=== PATIENT | female | born 1985 | race Caucasian/White ===

== ENCOUNTER 2018-02-25 22:51 | Inpatient (IN) | payer OTHER ==
[~2018-02-25] VITALS: Ht 175.3 cm; Wt 94.0 kg
[2018-02-25] MEDS ORDERED: OXYTOCIN 30U/ 0.9% NaCL 500ML 500 ML IV ONE (23:12)
[2018-02-25] MEDS ORDERED: D5%-LACTATED RINGERS 1,000 ML IV SCH (23:12)
[2018-02-25] MEDS ORDERED: OXYTOCIN 30U/ 0.9% NaCL 500ML 500 ML IV PRN (23:12)
[2018-02-25] MEDS ORDERED: LACTATED RINGERS 1,000 ML IV SCH ×2 (23:12→23:31)
[2018-02-25] MEDS ORDERED: MISOPROSTOL 200 MCG TABLET ONE (23:19)
[2018-02-25] MEDS ORDERED: LIDOCAINE 1%, 20ML ONE (23:19)
[2018-02-25] MEDS ORDERED: NEWBORN KIT ONE (23:19)
[2018-02-25] MEDS ORDERED: OXYTOCIN 30U/ 0.9% NaCL 500ML 500 ML ONE (23:19)
[2018-02-25] MEDS ORDERED: FENTANYL PF 100 MCG/2ML IVPush PRN (23:30)
[2018-02-25] MEDS ORDERED: CALCIUM CARBONATE 500 MG TAB.CHEW PO PRN (23:30)
[2018-02-25] MEDS ORDERED: FENTANYL PF 100 MCG/2ML IV PRN (23:30)
[2018-02-25] MEDS ORDERED: TERBUTALINE 1 MG/ML, 1ML IVPush PRN (23:30)
[2018-02-25] MEDS ORDERED: ONDANSETRON 2MG/ML, 2ML IVPush PRN (23:30)
[2018-02-25] MEDS ORDERED: FENTANYL/BUPIV./NS/PF 250 ML EPIDCONT SCH (23:31)
[2018-02-25 23:39] LABS: BASOPHILS # (AUTO) 0.04 x10^3/uL (0-0.1); BASOPHILS % (AUTO) 0 % (0-1); EOSINOPHILS # (AUTO) 0.18 x10^3/uL (0-0.4); EOSINOPHILS % (AUTO) 1 % (1-7); LYMPHOCYTES # (AUTO) 1.84 x10^3/uL (1-3.4); LYMPHOCYTES % (AUTO) 12 % (22-44); MD NO; MEAN CORPUSCULAR HEMOGLOBIN 31.7 pg (27.0-34.8); MEAN CORPUSCULAR HGB CONC 34.4 g/dL (32.4-35.8); MEAN CORPUSCULAR VOLUME 92.2 fL (80-100); MEAN PLATELET VOLUME 9.3 fL (7.4-10.4); MONOCYTES # (AUTO) 0.43 x10^3/uL (0.2-0.8); MONOCYTES % (AUTO) 3 % (2-9); NEUTROPHILS # (AUTO) 13.05 x10^3/uL (1.8-6.8); NEUTROPHILS % (AUTO) 84 % (42-75); PLATELET COUNT 180 x10^3/uL (130-400); RED BLOOD COUNT 4.23 x10^6/uL (3.82-5.3); RED CELL DISTRIBUTION WIDTH 12.8 % (9.6-15.2)
[2018-02-25] MEDS ORDERED: FENTANYL PF 100 MCG/2ML ONE (23:43)
[2018-02-25] MEDS ORDERED: FENTANYL PF 500 MCG, BUPIVACAINE/PF 0.5%, 30ML 62.5 ML in SODIUM CHLORIDE 0.9% 177.5 ML EPIDCONT SCH (23:45)
[2018-02-25 23:49] VITALS: BP 125/86
[2018-02-25] MEDS ORDERED: BUPIVACAINE 0.25% ONE (23:59)
[2018-02-26] MEDS ORDERED: LACTATED RINGERS 1,000 ML IVBOLUS PRN
[2018-02-26 00:15] VITALS: BP 128/80
[2018-02-26] MEDS ORDERED: BUPIVACAINE 0.25% ONE (00:19)
[2018-02-26] MEDS: OXYTOCIN 30U/ 0.9% NaCL 500ML 500 ML IV SCH ×3 (02:33→22:33)
[2018-02-26] MEDS ORDERED: ACETAMINOPHEN 325 MG TABLET PO PRN ×2 (03:00)
[2018-02-26] MEDS ORDERED: MISOPROSTOL 200 MCG TABLET PR PRN (03:00)
[2018-02-26] MEDS ORDERED: MAGNESIUM HYDROXIDE 8%, 30ML UDC PO PRN (03:00)
[2018-02-26] MEDS ORDERED: HYDROcodone/APAP 5/325 TABLET PO PRN (03:00)
[2018-02-26] MEDS ORDERED: MEASLES,MUMPS&RUBELLA VACC/PF 0.5 ML SQ PRN (03:00)
[2018-02-26] MEDS ORDERED: RHOGAM FROM BLOOD BANK 1 NOTE EA IM/IV ONE (03:00)
[2018-02-26 04:30] VITALS: BP 121/54
[2018-02-26 08:00] VITALS: BP 95/63
[2018-02-26] MEDS: IBUPROFEN 600 MG TABLET PO PRN ×3 (08:23→21:36)
[2018-02-26] MEDS: DOCUSATE 100 MG CAPSULE PO PRN ×2 (08:23→21:36)
[2018-02-26] MEDS: PRENATAL VIT/IRON/FA 1 EACH TABLET PO SCH (08:23)
[2018-02-26 10:37] LABS: MEAN CORPUSCULAR HEMOGLOBIN 32.1 pg (27.0-34.8); MEAN CORPUSCULAR HGB CONC 34.4 g/dL (32.4-35.8); MEAN CORPUSCULAR VOLUME 93.2 fL (80-100); MEAN PLATELET VOLUME 9.2 fL (7.4-10.4); PLATELET COUNT 176 x10^3/uL (130-400); RED BLOOD COUNT 4.03 x10^6/uL (3.82-5.3); RED CELL DISTRIBUTION WIDTH 12.8 % (9.6-15.2)
[2018-02-26 10:59] LABS: BASOPHILS % (AUTO) 1 % (0-1); EOSINOPHILS # (AUTO) 0.02 x10^3/uL (0-0.4); EOSINOPHILS % (AUTO) 0 % (1-7); LYMPHOCYTES # (AUTO) 1.49 x10^3/uL (1-3.4); LYMPHOCYTES % (AUTO) 8 % (22-44); MD SCAN; MONOCYTES # (AUTO) 0.57 x10^3/uL (0.2-0.8); MONOCYTES % (AUTO) 3 % (2-9); NEUTROPHILS # (AUTO) 17.21 x10^3/uL (1.8-6.8); NEUTROPHILS % (AUTO) 89 % (42-75)
[2018-02-26] MEDS: HYDROcodone/APAP 5/325 TABLET PO PRN ×2 (13:32→21:36)
[2018-02-26 14:00] VITALS: BP 109/73
[2018-02-26 18:17] VITALS: BP 114/75
[2018-02-26 19:55] VITALS: BP 118/75
[2018-02-27] MEDS: HYDROcodone/APAP 5/325 TABLET PO PRN ×2 (02:35→09:48)
[2018-02-27] MEDS: IBUPROFEN 600 MG TABLET PO PRN ×2 (03:43→09:47)
[2018-02-27] MEDS ORDERED: HYDR-3240 PO (07:20)
[2018-02-27] MEDS ORDERED: IBUP-1222 PO (07:20)
[2018-02-27] MEDS ORDERED: PREN1TAB60 PO (07:21)
[2018-02-27 07:50] VITALS: BP 92/54
[2018-02-27] MEDS: PRENATAL VIT/IRON/FA 1 EACH TABLET PO SCH (07:57)
[2018-02-27] MEDS: DOCUSATE 100 MG CAPSULE PO PRN (07:57)
[2018-02-27] MEDS: OXYTOCIN 30U/ 0.9% NaCL 500ML 500 ML IV SCH (08:33)
== END 2018-02-27 10:35 | disposition home or self-care (01) | DRG 807 ==
LOC: LDOP 22:51 → LDIP 23:16 → 2NW 02-26 04:22
PROVIDERS: ADMIT Obstetrics & Gynecology; ATTEND Obstetrics & Gynecology
PROC: 10D07Z6 Extraction of Products of Conception, Vacuum, Via Natural or Artificial Opening (ICD-10-PCS; principal; 2018-02-26)
PROC: 0HQ9XZZ Repair Perineum Skin, External Approach (ICD-10-PCS; 2018-02-26)
PROC: 10907ZC Drainage of Amniotic Fluid, Therapeutic from Products of Conception, Via Natural or Artificial Opening (ICD-10-PCS; 2018-02-26)
PROC: 3E0R3BZ Introduction of Anesthetic Agent into Spinal Canal, Percutaneous Approach (ICD-10-PCS; 2018-02-26)
PROC: 00HU33Z Insertion of Infusion Device into Spinal Canal, Percutaneous Approach (ICD-10-PCS; 2018-02-26)
DX: O76 Abnormality in fetal heart rate and rhythm complicating labor and delivery (principal); Z37.0 Single live birth; O70.0 First degree perineal laceration during delivery; Z3A.39 39 weeks gestation of pregnancy
CPT/HCPCS: 36415; 85025; 86850; 86900; 99285; G0378; J3010; J3490; J7050; J7120